=== PATIENT | female | born 1985 | race Caucasian/White ===

== ENCOUNTER 2017-02-12 12:12 | Emergency (ER) | payer OTHER ==
[2017-02-12 13:02] VITALS: RESP 18
--- NOTE | 2017-02-12 13:46 | EDPHY ---
HPI/HX/ROS/PE/MDM Narrative: CHIEF COMPLAINT: Bilateral arm rash HPI: The patient is a 32 y/o female who complains of a bilateral arm rash, that is worse on the left side. She was in [facility] last week, where she visited several pools, the beach, and a hot spring. While at the beach she slipped and injured her right arm. On Friday, 2 days ago, she noticed a rash on her left arm , which has now progressed to her right arm. She is also subjectively febrile with a temperature of 101 this morning. She did enter the ocean. She denies prior scratches to her arm, weakness, numbness or other pertinent symptoms. REVIEW OF SYSTEMS: Aside from elements discussed in the HPI, a comprehensive 10-point review of systems was reviewed and is negative. PMH: OCD SOCIAL HISTORY: Lives in [place] Nonsmoker PHYSICAL EXAM: General:Patient is alert, in no acute distress. ENT:Eyes are normal to inspection. ENT inspection normal. Neck: Normal inspection. Full range of motion. Respiratory:No respiratory distress. Breath sounds normal bilaterally. Cardiovascular: Regular rate and rhythm. Strong peripheral pulses. Normal cap refill. Abdomen:The abdomen is nontender to palpation. There are no peritoneal signs. There are normal bowel sounds. Back: Normal to inspection. No tenderness to palpation. Skin: Normal color. No rash. Warm and dry. Extremities: Left medial forearm and elbow has a linear area of erythema about 8 cm with white crusty discharge on lateral aspect and 4 other small linear areas of erythema in the same region. One similar area to right wrist and a well healing laceration to right arm. Otherwise normal appearance. Full range of motion. Neuro: Oriented x3. Normal motor function. Normal sensory function. Portions of this note were transcribed by an ED scribe. I personally performed the history, physical exam, and medical decision making; and confirm the accuracy of the information in the transcribed note. (Quang Ayala) ED Course: I consulted Dr. Fontenot from Infectious Disease. (Quang Ayala) MDM: Dr. Lizbeth Fontenot came to evaluate the patient. She has added laboratory tests including flu swab and blood cultures. She will see the patient in follow-up tomorrow at 2:30 p.m. in her office. I did not examine this patient. I was asked by Dr. Quang Ayala to help with disposition and plan. (Asha Andrade) - Data Points Laboratory Results: Laboratory Results 02/12/17 12:55 02/12/17 12:55 02/12/17 02/12/17 02/12/17 13:40 12:55 12:55 WBC RBC Hgb Hct MCV MCH MCHC RDW Plt Count MPV Neut % (Auto) Lymph % (Auto) [place] % (Auto) Eos % (Auto) Baso % (Auto) Nucleat RBC Rel Count Absolute Neuts (auto) Absolute Lymphs (auto) Absolute Monos (auto) Absolute Eos (auto) Absolute Basos (auto) Absolute Nucleated RBC Immature Gran % Immature Gran # Sodium Potassium Chloride Carbon Dioxide Anion Gap BUN Creatinine Estimated GFR Glucose Calcium Total Bilirubin Conjugated Bilirubin Unconjugated Bilirubin AST ALT Alkaline Phosphatase Total Protein Albumin Beta HCG, Qual NEGATIVE Urine Color COLORLESS Urine Appearance HAZY Urine pH 6.0 (5.0-7.5) Ur Specific [place] 1.003 (1.002-1.030) Urine Protein NEGATIVE (NEGATIVE) Urine Ketones 1+ H (NEGATIVE) Urine Blood NEGATIVE (NEGATIVE) Urine Nitrate NEGATIVE (NEGATIVE) Urine Bilirubin NEGATIVE (NEGATIVE) Urine Urobilinogen NEGATIVE EU EU (0.2-1.0) Ur Leukocyte Esterase NEGATIVE (NEGATIVE) Urine Glucose NEGATIVE (NEGATIVE) CMV IgG Ab Pending CMV IgM Ab Pending EBV Capsid Ag IgG Ab Pending EBV Capsid Ag IgM Ab Pending EBV Nuclear Antigen Ab Pending EBV Interpretation Pending 02/12/17 02/12/17 12:55 12:55 WBC 9.35 10^3/uL 10^3/uL (3.80-9.50) RBC 4.85 10^6/uL 10^6/uL (4.18-5.33) Hgb 14.9 g/dL g/dL (12.6-16.3) Hct 44.5 % % (38.0-47.0) MCV 91.8 fL fL (81.5-99.8) MCH 30.7 pg pg (27.9-34.1) MCHC 33.5 g/dL g/dL (32.4-36.7) RDW 12.0 % % (11.5-15.2) Plt Count 257 10^3/uL 10^3/uL (150-400) MPV 10.2 fL fL (8.7-11.7) Neut % (Auto) 81.2 % H % (39.3-74.2) Lymph % (Auto) 12.7 % L % (15.0-45.0) [place] % (Auto) 5.1 % % (4.5-13.0) Eos % (Auto) 0.2 % L % (0.6-7.6) Baso % (Auto) 0.3 % % (0.3-1.7) Nucleat RBC Rel Count 0.0 % % (0.0-0.2) Absolute Neuts (auto) 7.58 10^3/uL H 10^3/uL (1.70-6.50) Absolute Lymphs (auto) 1.19 10^3/uL 10^3/uL (1.00-3.00) Absolute Monos (auto) 0.48 10^3/uL 10^3/uL (0.30-0.80) Absolute Eos (auto) 0.02 10^3/uL L 10^3/uL (0.03-0.40) Absolute Basos (auto) 0.03 10^3/uL 10^3/uL (0.02-0.10) Absolute Nucleated RBC 0.00 10^3/uL 10^3/uL (0-0.01) Immature Gran % 0.5 % % (0.0-1.1) Immature Gran # 0.05 10^3/uL 10^3/uL (0.00-0.10) Sodium 139 mEq/L mEq/L (134-144) Potassium 3.9 mEq/L mEq/L (3.5-5.2) Chloride 104 mEq/L mEq/L (97-110) Carbon Dioxide 19 mEq/l L mEq/l (22-31) Anion Gap 16 mEq/L mEq/L (8-16) BUN 7 mg/dL mg/dL (7-23) Creatinine 0.8 mg/dL mg/dL (0.6-1.0) Estimated GFR > 60 Glucose 73 mg/dL mg/dL (70-100) Calcium 9.9 mg/dL mg/dL (8.5-10.4) Total Bilirubin 0.6 mg/dL mg/dL (0.1-1.4) Conjugated Bilirubin 0.3 mg/dL mg/dL (0.0-0.5) Unconjugated Bilirubin 0.3 mg/dL mg/dL (0.0-1.1) AST 35 IU/L IU/L (14-46) ALT 71 IU/L H IU/L (9-52) Alkaline Phosphatase 77 IU/L IU/L (38-126) Total Protein 7.4 g/dL g/dL (6.3-8.2) Albumin 4.6 g/dL g/dL (3.5-5.0) Beta HCG, Qual Urine Color Urine Appearance Urine pH Ur Specific [place] Urine Protein Urine Ketones Urine Blood Urine Nitrate Urine Bilirubin Urine Urobilinogen Ur Leukocyte Esterase Urine Glucose CMV IgG Ab CMV IgM Ab EBV Capsid Ag IgG Ab EBV Capsid Ag IgM Ab EBV Nuclear Antigen Ab EBV Interpretation General Time Seen by Provider: 02/12/17 13:35 Initial Vital Signs: Initial Vital Signs Temperature (C) 37 C 02/12/17 12:24 Heart Rate 86 02/12/17 12:24 Respiratory Rate 16 02/12/17 12:24 Blood Pressure 115/75 02/12/17 12:24 O2 Sat (%) 97 02/12/17 12:24 O2 Delivery Mode Room Air Allergies/Adverse Reactions: Penicillins Allergy (Verified 12/01/13 20:43) Home Medications: Medication Instructions Recorded MIRTAZAPINE 02/12/17 Departure - Departure Disposition: Home, Routine, Self-Care Clinical Impression: Rash Condition: Good Instructions: Dermatitis (ED) Additional Instructions: Follow-up with your primary doctor within 72 hours. Return to the Emergency Department for fever, chest pain, shortness of breath, increasing pain or other worsening of condition. Referrals: Kathe Burrows MD [Primary Care Provider] - As per Instructions Lizbeth Fontenot MD [Medical Doctor] - 02/13/17 2:30 pm Report Scribed for: Quang Ayala Report Scribed by: Chyna Bone Date of Report: 02/12/17 Time of Report: 13:37
[2017-02-12 13:47] LABS: % IMMATURE GRANULYOCYTES 0.5 % (0.0-1.1); ABSOLUTE IMMATURE GRANULOCYTES 0.05 10^3/uL (0.00-0.10); ADD DIFF? NO; ADD MORPH? NO; ADD SCAN? NO; ATYPICAL LYMPHOCYTE FLAG 30 (0-99); FRAGMENT RBC FLAG 0 (0-99); HEMATOCRIT 44.5 % (38.0-47.0); HEMOGLOBIN 14.9 g/dL (12.6-16.3); LEFT SHIFT FLG 0 (0-99); LIPEMIA HEMOLYSIS FLAG 80 (0-99); MEAN CELL HEMOGLOBIN 30.7 pg (27.9-34.1); MEAN CELL HEMOGLOBIN CONCENTR. 33.5 g/dL (32.4-36.7); MEAN CELL VOLUME 91.8 fL (81.5-99.8); MEAN PLATELET VOLUME 10.2 fL (8.7-11.7); PLATELET CLUMPS FLAG 0 (0-99); PLATELET COUNT 257 10^3/uL (150-400); RED BLOOD CELL COUNT 4.85 10^6/uL (4.18-5.33)
[2017-02-12 13:48] LABS: COLOR COLORLESS; LEUKOCYTE ESTERASE,URINE NEGATIVE (NEGATIVE); NITRITE,URINE NEGATIVE (NEGATIVE)
[2017-02-12 13:52] LABS: ALANINE AMINOTRANSFERASE 71 IU/L (9-52); ALBUMIN 4.6 g/dL (3.5-5.0); ALKALINE PHOSPHATASE 77 IU/L (38-126); ANION GAP 16 mEq/L (8-16); ASPARTATE AMINOTRANSFERASE 35 IU/L (14-46); BILIRUBIN,TOTAL 0.6 mg/dL (0.1-1.4); BILIRUBIN-CONJUGATED 0.3 mg/dL (0.0-0.5); BILIRUBIN-UNCONJUGATED 0.3 mg/dL (0.0-1.1); CALCIUM 9.9 mg/dL (8.5-10.4); CARBON DIOXIDE 19 mEq/l (22-31); CHLORIDE 104 mEq/L (97-110); CREATININE 0.8 mg/dL (0.6-1.0); GLOMERULAR FILTRATION RATE > 60; GLUCOSE 73 mg/dL (70-100); POTASSIUM 3.9 mEq/L (3.5-5.2); SODIUM 139 mEq/L (134-144); TOTAL PROTEIN 7.4 g/dL (6.3-8.2)
[2017-02-12 17:01] VITALS: BP 110/71; PULSE 81; TEMP 98.2; O2SAT 96
--- NOTE | 2017-02-12 18:03 | GCON ---
[f rep st] CONSULTATION INFECTIOUS DISEASE ER CONSULTATION. REASON FOR CONSULTATION: Fever and rash. HISTORY OF PRESENT ILLNESS: This is a 32-year-old woman who has no past medical history who, starting on February 08, developed malaise, nausea that was more prominent in the morning, but improved in the afternoon. [place] from [facility] on the and on that day, continued to have malaise and developed dizziness. In addition, she noticed intermittent hot flashes and sweatiness. She presented to her primary care on Friday with request for Tdap as she fell in [facility] and felt her vaccination was not up to date. Specifically, patient fell on February 05. She was standing on a wooden platform and fell on gravel on her right arm. Two days ago, patient developed a rash on her left greater than her right arm, that is linear and painful in nature. She has continued to have significant fatigue and hypersomnolence and had a temperature yesterday to 101. She denies cough, sore throat, rhinorrhea, headache, visual changes, abdominal pain, or diarrhea. In fact, she has not had a bowel movement in several days. At the site of her rash on her left arm was a place where they marvel blood from her in clinic where the dressing was after her phlebotomy. Otherwise, she denies any specific trauma to this area via vegetation, pets or fall. PAST MEDICAL HISTORY: OCD. SOCIAL HISTORY: She lives in [place]. She is . Nonsmoker. Traveled to [facility]. She was touring almost every [place] in [facility]. She did not take malaria prophylaxis. She did not swim in the ocean, but she did walk in the ocean. She obtained multiple bites, but she says mostly from ants and flies. She wore bug spray the entire time. No one else was sick. Her 6 and 9 year olds did not travel with her. She has not recently done yard work. She has a dog and cat. Her cat has no claws. They also have a Guinea pig and lizard, but she has not been in contact. FAMILY HISTORY: Reviewed and noncontributory. ALLERGIES: Penicillin, did not review reaction. MEDICATIONS: None. REVIEW OF SYSTEMS: A complete 10-point review of systems was performed and is negative except as mentioned in the HPI. PHYSICAL EXAM: VITAL SIGNS: BP 118/69, HR 88, RR 18, saturation 98% on room air, T 36.9. GENERAL: This is a nontoxic appearing woman who is lying in bed in no acute respiratory distress. HEENT: Pupils are reactive bilaterally. No oral ulcerations or exudate. NECK: Supple. No lymphadenopathy. CARDIOVASCULAR : Regular rate, no murmurs. CHEST: Clear to auscultation bilaterally. ABDOMEN: Obese, soft, nontender. Bowel sounds are present. EXTREMITIES: No clubbing, cyanosis, or edema. SKIN: She had a linear eruption on her left forearm without surrounding erythema that was mildly tender to palpation without associated lymphadenopathy, looked like contact dermatitis. Right forearm she had a laceration that was healing well without surrounding erythema or discharge. No other rashes were noted. LABORATORY: White count is 9.3, hematocrit 44, platelets of 256, 81% neutrophils. Creatinine is 0.8, AST 35, two days ago was 62, ALT 71, two days ago was 76, alkaline phosphatase was 77, total bilirubin 0.6. Beta hCG was negative. Urinalysis was negative. CMV, EBV, and influenza serologies are pending. Blood cultures were collected. ASSESSMENT AND PLAN: This is a 32-year-old woman who recently traveled to [facility] with minimal laboratory abnormalities, today noted to have a mild left shift, normal hematocrit, normal platelets, slightly elevated transaminases with normal creatinine. I suspect a viral illness causing her malaise, temperature and mild laboratory abnormalities and I suspect that the linear eruption on her left forearm is most consistent with contact dermatitis - despite not being able to identify the specific agent that caused the reaction. At this point, do not think enough evidence exists for evaluation of chikungunya, malaria or dengue. Would send EBV, CMV and influenza. Would also obtain blood cultures. No antibiotic therapy, just supportive care. Will recommend patient follow up with me in clinic tomorrow 02/13 at 2:30 p.m. to continue to monitor. Addendum 11/12/2016 6:15 p.m. Influenza PCR negative /[id number]/MODL MTDD
[2017-02-13 15:39] LABS: ANTI EBNA Positive (Negative); ANTI VCA/IgG Positive (Negative); ANTI VCA/IgM Negative (Negative)
== END 2017-02-12 16:56 | disposition home or self-care (01) ==
DX: R21 Rash and other nonspecific skin eruption (principal)
CPT/HCPCS: 86644-90; 86645-90; 86664-90; 86665-90

== ENCOUNTER 2017-02-15 07:33 | Emergency (ER) | payer OTHER ==
[2017-02-15 07:39] VITALS: RESP 18; TEMP 98.2
--- NOTE | 2017-02-15 07:49 | EDPHY ---
H & P Stated Complaint: Pt wants testing for cytomegalo virus and mono;still fatigued HPI/ROS: CHIEF COMPLAINT: Fatigue HISTORY OF PRESENT ILLNESS: This patient is a 32 year old female complaining of fatigue. She was evaluated 3 days ago, 02/12/17 for similar symptoms after visting her primary care physician, Dr. Burrows, for a bilateral arm rash. She has followed up with Dr. Fontenot, infectious disease specialists. Her rash is painful and only slightly itchy. Her blood pressure is generally low, and she believes an underlying viral infection may be causing her blood pressure to be higher than usual. She endorses a squeezing sensation in her chest. She does have a history of panic attacks, and has been evaluated here for these before. She is concerned about the possibility of cytomegalovirus. She has been nauseous and noted a lack of appetite. She has been trying to stay hydrated with water and broth as tolerated. She endorses a slight cough. She sleeps about nine hours at night and 3-4 hours during the day. Her daughter has been feeling a little bit sick as well, but she denies other sick contacts and was recently in [facility], returning about one week ago. She is concerned regarding dehydration. She is scheduled to follow up on Friday with Dr. Fontenot. She denies diarrhea, vomiting , shortness of breath, or other associated symptoms. REVIEW OF SYSTEMS: A 10 point review of systems was performed and is negative with the exception of the elements mentioned in the history of present illness. - Personal History LMP (Females 10-55): 15-21 Days Ago Current Tetanus Diphtheria and Acellular Pertussis (TDAP): Yes Tetanus Vaccine Date: 2016 - Medical/Surgical History PMH: Anxiety, OCD. Hx Asthma: No Hx Chronic Respiratory Disease: No Hx Diabetes: No Hx Cardiac Disease: No Hx Renal Disease: No Hx Cirrhosis: No Hx Alcoholism: No Hx HIV/AIDS: No Hx Splenectomy or Spleen Trauma: No Other PMH: OCD - Social History Smoking Status: Never smoked Additional Social History: . Lives in [place]. Has children. Nonsmoker. - Physical Exam Exam: General Appearance: Alert, no distress Eyes: Pupils equal and round, no conjunctival pallor or injection ENT, Mouth: Mucous membranes moist Neck: Normal inspection Respiratory: Lungs are clear to auscultation Cardiovascular: Regular rate and rhythm Gastrointestinal: Abdomen is soft and non- tender Neurological: A&O, nonfocal, normal gait Skin: Warm and dry, no rash Extremities: Nontender, no pedal edema Psychiatric: Mood and affect normal Constitutional: Initial Vital Signs Temperature (C) 36.8 C 02/15/17 07:36 Heart Rate 101 H 02/15/17 07:36 Respiratory Rate 18 02/15/17 07:36 Blood Pressure 133/84 H 02/15/17 07:36 O2 Sat (%) 99 02/15/17 07:36 O2 Delivery Mode Room Air Allergies/Adverse Reactions: Penicillins Allergy (Intermediate, Verified 02/15/17 07:36) Home Medications: Medication Instructions Recorded MIRTAZAPINE 02/12/17 Ondansetron Odt [Zofran Odt 4 mg 4 mg PO Q4 PRN #6 tab 02/15/17 (*)] Medical Decision Making - Diagnostics Imaging: I viewed and interpreted images myself ED Course/Re-evaluation: 32 year old female presents with fatigue and concern for mono infection. Reviewed prior labs from 02/12/17. The patient has had prior exposure to CMV and EBV, but no active infections. She was also negative for influenza. Plan for dip UA to assess for dehydration/UTI. She has had a full lab workup through the emergency department and Dr. Fontenot, infectious disease specialist, three days ago. I reviewed these results. Sx c/w viral syndrome. Urine dip shows 1+ leukocytes, 2+ ketones. Plan to encourage PO rehydration. 9:10 Reassessed patient. UA contaminated, doubt UTI, urine cx sent. She is very concerned regarding her heart. Repeat CV exam normal. Plan for chest x- ray and EKG. Also concerned that her BP is elevated. Tried to reassure her, BP 125/85. Patient declined chest x-ray and EKG. Plan to discharge home in good condition with prescription for Zofran for nausea relief. She will follow up with Dr. Fontenot as scheduled. Return precautions discussed. The patient is comfortable with this plan. Differential Diagnosis: Differential diagnosis includes pyelonephritis, cholecystitis, influenza, cellulitis, pneumonia, abscess, meningitis. - Data Points Laboratory Results: 02/15/17 08:45 Urine Color RED Urine Appearance HAZY Urine pH 6.0 (5.0-7.5) Ur Specific [place] 1.009 (1.002-1.030) Urine Protein NEGATIVE (NEGATIVE) Urine Ketones 2+ H (NEGATIVE) Urine Blood NEGATIVE (NEGATIVE) Urine Nitrate NEGATIVE (NEGATIVE) Urine Bilirubin NEGATIVE (NEGATIVE) Urine Urobilinogen NEGATIVE EU EU (0.2-1.0) Ur Leukocyte Esterase 2+ H (NEGATIVE) Urine RBC 3-5 /hpf H /hpf (0-3) Urine WBC 3-5 /hpf H /hpf (0-3) Ur Epithelial Cells 2+ /lpf H /lpf (NONE-1+) Urine Mucus TRACE /lpf /lpf (NONE-1+) Urine Glucose NEGATIVE (NEGATIVE) Departure - Departure Disposition: Home, Routine, Self-Care Clinical Impression: Viral syndrome Condition: Good Instructions: Viral Syndrome (ED) Additional Instructions: 1. Follow up with Dr. Fontenot and Dr. Burrows as scheduled. 2. Stay well-hydrated and introduce bland foods as tolerated. 3. Take your Zofran as prescribed as needed for nausea. 4. Return to the emergency department for fever greater than 101 degrees Fahrenheit, uncontrollable vomiting, systolic blood pressure greater than 170, fainting, or other worsening of condition. Referrals: Lizbeth Fontenot MD [Primary Care Provider] - As per Instructions Kathe Burrows MD [Medical Doctor] - As per Instructions Prescriptions: Ondansetron Odt [Zofran Odt 4 mg (*)] 4 mg PO Q4 PRN #6 tab PRN Reason: Nausea Report Scribed for: Binta Ibarra Report Scribed by: Lizbeth Pollock Date of Report: 02/15/17 Time of Report: 07:49 Physician Review and Approval Statement: 02/15/17 07:49 Portions of this note were transcribed by a medical technologist chemistry. I personally performed a history, physical exam, medical decision making, and confirmed accuracy of information the transcribed note.
[2017-02-15 09:03] LABS: COLOR RED; LEUKOCYTE ESTERASE,URINE 2+ (NEGATIVE); NITRITE,URINE NEGATIVE (NEGATIVE)
[2017-02-15 09:06] LABS: MUCUS TRACE /lpf (NONE-1+)
[2017-02-15 09:54] VITALS: BP 123/85; PULSE 89; O2SAT 97
== END 2017-02-15 09:54 | disposition home or self-care (01) ==
DX: B34.9 Viral infection, unspecified (principal)

== ENCOUNTER → 2017-04-10 | Outpatient (CLI) | payer OTHER | LOC: FIMAGING 08:47 → EDSTATUS 08:48 | PROVIDERS: ATTEND Family Medicine | DX: J40 Bronchitis, not specified as acute or chronic (principal); J98.4 Other disorders of lung ==